=== PATIENT | female | born 1990 | race Caucasian/White ===

== ENCOUNTER 2019-12-05 10:25 | Emergency (ER) | payer OTHER, SELFPAY ==
--- NOTE | ~2019-12-05 | XR_ITS ---
EXAMINATION: XR_RIBSBI_CR INDICATION: Left-sided rib pain TECHNIQUE: 3 views of the bilateral ribs were obtained. COMPARISON: None. FINDINGS: The lungs are free of acute opacities. There is no pleural effusion or pneumothorax. The ca rdiomediastinal silhouette is normal. The visualized bones and soft tissues are unremarkable. No disp laced rib fracture is identified. IMPRESSION: 1. No acute cardiopulmonary abnormality or evidence of displaced rib fracture. Reviewed, dictated and finalized at location B.
[2019-12-05 10:30] VITALS: BP 125/76; PULSE 106; RESP 16; TEMP 37.3; O2SAT 98
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
[2019-12-05] MEDS: KETOROLAC (*BKC) 60 MG/2 ML VIAL IM (11:12)
[2019-12-05] MEDS: TETANUS,DIPHTHERIA,AC PERTUSSIS ADULT 0.5 ML (ADACEL) IM (11:12)
[2019-12-05 11:15] LABS: Add Urine Microscopic? YES; Bilirubin Urine Negative (Negative); Blood Urine Negative (Negative); Color Urine Yellow (Yellow); Glucose Urine UA Negative (Negative); Ketones Urine Trace (Negative); Leukocyte Esterase Ur Negative (Negative); Nitrate Urine Negative (Negative); Protein Urine Negative (Negative); Specific Grav Ur 1.025 (1.010-1.020)
[2019-12-05 11:19] LABS: Appearance Urine Sl Cloudy (Clear); Bacteria Urine 1+ /hpf; RBC Urine 0-2 /hpf (0-2); Squamous Epithelial Cell Urine Many /hpf (Few); WBC Urine 0-3 /hpf (0-3)
[2019-12-05 11:28] LABS: Urine Pregnancy Test Negative
[2019-12-05 11:29] LABS: Pregnancy On Board Control Positive; Specific Gravity Ur 1.025 (1.010-1.035)
[2019-12-05 12:31] VITALS: BP 120/68; PULSE 89
== END 2019-12-05 12:32 | disposition home or self-care (01) ==
PROVIDERS: Emergency Provider Emergency Medicine
DX: S39.012A Strain of muscle, fascia and tendon of lower back, initial encounter (principal); Y04.0XXA Assault by unarmed brawl or fight, initial encounter; T14.8XXA Other injury of unspecified body region, initial encounter
CPT/HCPCS: 71110; 81001; 81025; 90471; 90715; 96372; 99283; J1885

== ENCOUNTER 2020-05-05 04:03 | Emergency (ER) | payer OTHER, SELFPAY ==
[2020-05-05] VITALS (105 sets, daily range): BP systolic 96–141; BP diastolic 67–120; PULSE 76–146; RESP 3–99; TEMP 37–37.1; O2SAT 95–100
--- NOTE | 2020-05-05 04:17 | ECG_ITS ---
Measurements Intervals [place] Rate: 120 P: 67 MN: 100 QRS: 76 QRSD: 88 T: 56 QT: 318 QTc: 450 Interpretive Statements SINUS TACHYCARDIA WITH SHORT MN INTERVAL MINIMAL Q WAVES- INF/LAT LEADS ABNORMAL ECG Electronically Signed On 05-05-2020 7:20:54 INVESTIGATION CLERK by Umesh Hirsch D.O.
[2020-05-05] MEDS: CHARCOAL ACTIVATED LIQUID 25 GM/120 ML BOTTLE 50 GM PO (04:30)
--- NOTE | 2020-05-05 04:42 | ED.OVERDOSE ---
HPI - Overdose General Chief Complaint: Overdose Stated Complaint: OVERDOSE Source: patient Mode of arrival: ambulatory Limitations: altered mental status History of Present Illness HPI Narrative: Patient say she took 26 valium tablets. This was about 30 minutes prior to arrival. She is now drowsy, but the RN managed to get the activated charcoal down her. This is a apparent suicide attempt, as she said she took them because she was hopeless. complaint: intentional overdose Intent: suicide attempt Context: Intentional Overdose: relationship problems Associated symptoms: depression Treatments Prior to Arrival: none Related Data Home Medications Medication Instructions Recorded Confirmed No Home Medications 05/05/20 05/05/20 Allergies Allergy/AdvReac Type Severity Reaction Status Date / Time No Known Allergies Allergy Unverified 11/06/17 17:22 Review of Systems Constitutional: Constitutional: Reports as per HPI Eyes: Eyes: Reports as per HPI ENT: Reports as per HPI Cardiovascular: Cardiovascular: Reports as per HPI Respiratory: Respiratory: Reports as per HPI Gastrointestinal: Gastrointestinal: Reports as per HPI Musculoskeletal: Musculoskeletal: Reports as per HPI Integumentary/Breasts: Skin/Breast: Reports as per HPI Neurologic: Reports as per HPI Psychiatric: Psychiatric: Reports as per HPI Endocrine: Endocrine: Reports as per HPI Hematologic/Lymphatic: Hematologic/Lymphatic: Reports as per HPI Allergic/Immunologic: Allergic/Immunologic: Reports as per HPI PMF Past Medical History Medical History Anxiety Depression No pertinent past medical history Patient denies significant medical history Surgical History Surgical History No pertinent past surgical history Social History Social History Social History: uses a vape Exam Const: Other: She was initially awake and alert, now drowsy. HENMT: Head: normal to inspection General nose exam: Normal external nose present and Normal nares present Face and sinus: normal facial exam Eyes: Conjunctivae: conjunctivae normal Neck: Neck: normal visual inspection Chest: Chest palpation & inspection: normal inspection of the chest Resp: Effort & Inspection: normal respiratory effort Auscultation: clear to auscultation bilaterally Cardio: Rate: regular rate Rhythm: regular rhythm GI: GI Palp: Yes Soft to palpation Other: nontender Skin: General skin exam: normal color Neuro: Other: Initially alert and oriented. Extrem: General: normal to inspection Psych: Appearance: grossly normal Mental Status: mental status grossly normal Thought content: Yes Suicidality present Course Course Emergency Course: Spoke with poison control. She appears to be getting more sleepy. Vital Signs Vital signs: Vital Signs Temperature 37.0 C 05/05/20 04:05 Pulse Rate 124 H 05/05/20 04:05 Respiratory Rate 20 05/05/20 04:05 Blood Pressure 127/87 05/05/20 04:05 Pulse Oximetry 98 05/05/20 04:05 Temperature 37.1 C 05/05/20 05:43 Pulse Rate 118 H 05/05/20 05:43 Respiratory Rate 18 05/05/20 06:34 Blood Pressure 111/67 05/05/20 05:43 Pulse Oximetry 98 05/05/20 05:43 MDM - Overdose Lab Data Result diagrams: 05/05/20 04:45 05/05/20 04:45 Labs: Lab Results 05/05/20 05/05/20 05/05/20 Range/Units 04:41 04:41 04:45 WBC (4.8-10.8) K/mm3 RBC (4.20-5.40) M/mm3 Hgb (12.0-15.0) g/dL Hct (35.0-49.0) % MCV (78.0-102.0) fL MCH (27.0-31.0) pg MCHC (32.0-36.0) g/dL RDW (11.6-14.4) % Plt Count (150-420) K/mm3 MPV (9.2-11.8) fl Immature Gran % (Auto) (0.0-0.0) % Neut % (Auto) (50.0-70.0) % Lymph % (Auto) (18.0-42.0) % [place] % (Auto) (2.0-11.0)
[2020-05-05 04:56] LABS: Basophils Absolute Auto 0.03 K/mm3 (0.00-0.10); Basophils Percent Auto 0.4 % (0.0-1.0); Eosinophils Percent Auto 1.3 % (1.0-6.0); Hematocrit 44.9 % (35.0-49.0); Hemoglobin 14.3 g/dL (12.0-15.0); Immature Granulocyte Absolute 0.03 K/mm3 (0.00-0.00); Immature Granulocyte Percent A 0.4 % (0.0-0.0); Lymphocytes Absolute Auto 1.78 K/mm3 (1.10-4.50); Lymphocytes Percent Auto 23.1 % (18.0-42.0); Mean Corpuscular HGB Conc 31.8 g/dL (32.0-36.0); Mean Corpuscular Hemoglobin 28.8 pg (27.0-31.0); Mean Corpuscular Volume 90.3 fL (78.0-102.0); Mean Platelet Volume 11.1 fl (9.2-11.8); Monocytes Absolute Auto 0.41 K/mm3 (0.10-0.90); Monocytes Percent Auto 5.3 % (2.0-11.0); Neutrophils Absolute Auto 5.4 K/mm3 (1.7-7.2); Neutrophils Percent Auto 69.5 % (50.0-70.0); Platelet Count Result 235 K/mm3 (150-420); Red Blood Count 4.97 M/mm3 (4.20-5.40); Red Cell Distribution Width 12.6 % (11.6-14.4); White Blood Count 7.7 K/mm3 (4.8-10.8)
[2020-05-05 05:00] LABS: Bilirubin Urine Negative (Negative); Blood Urine Negative (Negative); Glucose Urine UA Negative (Negative); Ketones Urine Negative (Negative); Leukocyte Esterase Ur 2+ (Negative); Nitrate Urine Negative (Negative); Protein Urine Negative (Negative); Specific Grav Ur 1.025 (1.010-1.020); Urobilinogen Urine 0.2 mg/dL (0.2-1.0)
[2020-05-05 05:14] LABS: Amphetamine Screen Urine Positive (Negative); Barbiturate Screen Urine Negative (Negative); Benzodiazepines Screen Urine Negative (Negative); Cannabinoid Screen Urine Negative (Negative); Cocaine Screen Urine Negative (Negative); Methadone Screen Urine Negative (Negative); Opiate Screen Urine Negative (Negative); Phencyclidine Screen Urine Negative (Negative)
[2020-05-05 05:21] LABS: Alanine Aminotransferase 22 U/L (14-59); Albumin Level 4.4 g/dL (3.4-5.0); Alkaline Phosphatase 70 U/L (46-116); Anion Gap 8 mmol/L (8-16); Aspartate Amino Transferase 17 U/L (15-37); Bilirubin,Total 0.3 mg/dL (0.00-1.00); Blood Urea Nitrogen 15 mg/dL (7-18); Calcium 9.4 mg/dL (8.5-10.1); Carbon Dioxide 29 mmol/L (21-32); Chloride 101 mmol/L (98-108); Estimated Glomerular Filt Rate > 60; Glucose 110 mg/dL (70-99); Osmolality Calculated 287 mOsm/kg (285-295); Potassium 3.6 mmol/L (3.5-5.1); Sodium 138 mmol/L (136-145); Total Protein 8.2 g/dL (6.4-8.2)
[2020-05-05 05:34] LABS: Acetaminophen < 2 ug/mL (10-30); Salicylate 1.2 mg/dL (2.8-20.0)
[2020-05-05 05:35] LABS: Thyroid Stimulating Hormone 1.42 uIU/mL (0.36-3.74)
[2020-05-05 05:35] LABS: Ethanol < 3 mg/dL (0-6)
[2020-05-05 05:39] LABS: SARS-CoV-2 Ag Negative (Negative)
[2020-05-05 05:43] LABS: Magnesium 1.9 mg/dL (1.8-2.4)
--- NOTE | 2020-05-05 05:45 | PC.NURSE ---
pt sleeping but restless in cot. nurse at bedside.
[2020-05-05 05:50] LABS: Pregnancy On Board Control Positive; Urine Pregnancy Test Negative
[2020-05-05 05:51] LABS: Add Urine Microscopic? YES; Appearance Urine Cloudy (Clear); Color Urine Yellow (Yellow); Squamous Epithelial Cell Urine Many /hpf (Few); WBC Urine >75 /hpf (0-3)
--- NOTE | 2020-05-05 06:18 | PC.NURSE ---
0410 poison control notified of pt per dr day, suggestion of 6 hour observation, supportive care. update as needed. 0500 pt assisted with completing activated charcoal. pt getting drowsy, needing shakened to be awake. face washed to remove charcoal form lips. 0530 pt drowsy in cot, head bobbing . head of bed lowered to level of comfort. RN remains at bedside to keep sapo2 monitor on pt finger. 0620 pt sleeping, restless in cot. repositioned per this speech writer. vital signs stable. resp even and unlabored.
--- NOTE | 2020-05-05 06:58 | PC.NURSE ---
0687 pt sleeping, calm at still for past 15 minutes, update to dr abernathy and dr louie . RN sitting outside of door at this time.
--- NOTE | 2020-05-05 07:18 | PC.NURSE ---
update given to daljit at poison control . will call back for final report at later time. pt sleeping at this time.
[2020-05-05 07:45] LABS: Creatine Kinase 120 U/L (26-192)
--- NOTE | 2020-05-05 08:39 | PC.NURSE ---
0730 pt sleeping , sitter outside doorway. pt in direct vision of RN or SITTER at all times. 0800 pt sleeping. 0830 pt sleeping, vitals remain stable.
--- NOTE | 2020-05-05 09:22 | PC.NURSE ---
pt moving around in bed. attempted to wash face to remove charcoal. pt still drowsy, stated in clear voice, Get the F--- away from me and rolled over, eyes closed. erp notified of behavior, heard pt response.
--- NOTE | 2020-05-05 09:41 | PC.NURSE ---
patient is sleeping getting a little restless sister at door
--- NOTE | 2020-05-05 10:00 | PC.NURSE ---
EDP, Dr. Rodriges cleared pt for mental health evaluation.
--- NOTE | 2020-05-05 11:11 | PC.NURSE ---
patient is resting comforably sitter right outside door
--- NOTE | 2020-05-05 11:53 | PC.NURSE ---
patient is sleeping comfortably sitter at doorside
--- NOTE | 2020-05-05 12:00 | PC.NURSE ---
Poison control called to check pt status. pt is cleared by poison control at this time and case has been closed.
--- NOTE | 2020-05-05 12:00 | PC.NURSE ---
Stephanie Trujillo was medically cleared by poison control and Dr. Rodriges at 1200 on 05/05/2020.
--- NOTE | 2020-05-05 12:20 | PC.NURSE ---
Pt resting comfortably on stretcher. attempted to awake pt, pt drowsy, pt thinks she is in [place]. voices no complaints at this time.
--- NOTE | 2020-05-05 12:32 | PC.NURSE ---
Pt trying to get up, pt states that she is at [facility] and is agreeable to speak with mental health.
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
--- NOTE | 2020-05-05 18:40 | PC.NURSE ---
Pt continues to rest comfortably on stretcher, no complaints at this time. pt sleeping awakes to verbal stimuli. pt alert and oriented when awoken, declines any needs at this time. Pt continues to agree to be transfered for mental health treatment.
--- NOTE | 2020-05-05 19:20 | PC.NURSE ---
Report to Yudy at [facility], [facility] contacted for transfer, no rig available will be approx a 1 hour delay.
== END 2020-05-05 22:21 ==
PROVIDERS: Emergency Provider Emergency Medicine
DX: T50.992A Poisoning by other drugs, medicaments and biological substances, intentional self-harm, initial encounter (principal); F32.89 Other specified depressive episodes
CPT/HCPCS: 36415; 80053; 80307; 81001; 81025; 82550; 83735; 84443; 84702; 85025; 87426; 93005; 99285

== ENCOUNTER 2020-08-05 14:38 | Emergency (ER) | payer OTHER, SELFPAY ==
[2020-08-05 14:45] VITALS: BP 121/86; PULSE 110; RESP 20; TEMP 36.9; O2SAT 99
--- NOTE | 2020-08-05 15:14 | ED.UPPEXIN ---
HPI - Extremity Injury (Upper) General Chief Complaint: Extremity Injury, Upper Stated Complaint: elbow pain Source: patient Mode of arrival: ambulatory Limitations: no limitations History of Present Illness HPI narrative: Pt has been doing a lot of sanding and elbows started to hurt. Right is much worse than left. No other trauma. complaint: injury to: right and elbow Onset (ago): month(s) (1) Other Extremity Injury: Bilateral: elbow (R>>>>L) Other injuries: none Exacerbating factors: movement of extremity Associated symptoms: denies other symptoms Related Data Allergies Allergy/AdvReac Type Severity Reaction Status Date / Time No Known Allergies Allergy Unverified 11/06/17 17:22 Review of Systems Review of Systems: All systems reviewed & are unremarkable except as noted in HPI and below PMFSH Past Medical History Medical History Anxiety Depression No pertinent past medical history Patient denies significant medical history Surgical History Surgical History No pertinent past surgical history Social History Social History Social History: uses a vape Exam Const: General: no acute distress and alert Orientation/consciousness: patient oriented x3 HENMT: Head: normal to inspection Eyes: Conjunctivae: conjunctivae normal Pupils: Equal, round and reactive pupils present Neck: Neck: normal visual inspection Chest: Chest palpation & inspection: normal inspection of the chest Resp: Effort & Inspection: normal respiratory effort Auscultation: clear to auscultation bilaterally Cardio: Rate: regular rate Rhythm: regular rhythm GI: GI Palp: Yes Soft to palpation : General: Yes no CVA tenderness Skin: General skin exam: normal color Rashes: no rashes Neuro: General: patient oriented x3 and moves all extremities Extrem: General: normal to inspection Other: lateral epicondylar tenderness, very reproducible in the tendon palpation. Psych: Mental Status: mental status grossly normal Course Vital Signs Vital signs: Vital Signs Temperature 36.9 C 08/05/20 14:45 Pulse Rate 110 H 08/05/20 14:45 Respiratory Rate 20 08/05/20 14:45 Blood Pressure 121/86 08/05/20 14:45 Pulse Oximetry 99 03/30/21 14:45 Temperature 36.9 C 08/05/20 14:45 Pulse Rate 110 H 08/05/20 14:45 Respiratory Rate 20 08/05/20 14:45 Blood Pressure 121/86 08/05/20 14:45 Pulse Oximetry 99 08/05/20 14:45 Discharge Plan Discharge Clinical Impression: Lateral epicondylitis (tennis elbow) Qualifiers: Laterality: right Qualified Code(s): M77.11 - Lateral epicondylitis, right elbow Patient Disposition: Home, Self-Care Condition: Stable Instructions: Antibiotic Form, Tennis Elbow (ED) Prescriptions: New methylprednisolone [Medrol (Prabhu)] 4 mg tablets,dose pack See Rx Instructions .ROUTE .COMPLEX Qty: 21 RF: 0 Follow-up/Referrals: UNKNOWN,DOCTOR [Primary Care Provider] - Time of Disposition: 15:15
[2020-08-05 15:34] VITALS: RESP 17
== END 2020-08-05 15:34 | disposition home or self-care (01) ==
PROVIDERS: Emergency Provider Emergency Medicine
DX: M77.11 Lateral epicondylitis, right elbow (principal)
CPT/HCPCS: 99283

== ENCOUNTER 2020-11-29 22:17 | Emergency (ER) | payer OTHER, SELFPAY ==
[2020-11-29 22:35] VITALS: BP 125/71; PULSE 85; RESP 16; TEMP 36.6; O2SAT 100
[2020-11-30 00:27] VITALS: BP 126/76; PULSE 93; RESP 18; TEMP 36.5; O2SAT 100
--- NOTE | 2020-11-30 01:18 | PC.NURSE ---
Pt noted to be walking out of the ED.
--- NOTE | 2020-11-30 01:24 | PC.NURSE ---
Patient seen leaving ED with her SO. Patient left before seeing provider.
== END 2020-11-30 01:24 | disposition left against medical advice (07) ==
DX: M25.511 Pain in right shoulder (principal)
CPT/HCPCS: 99199